=== PATIENT | male | born 1995 | race Caucasian/White ===

== ENCOUNTER 2021-02-17 12:51 | Emergency (ER) | payer OTHER, SELFPAY ==
[2021-02-17 13:01] VITALS: BP 115/67; PULSE 81; RESP 16; TEMP 36.6; O2SAT 98
[2021-02-17 13:04] VITALS: BP 125/68; PULSE 85; RESP 16; TEMP 36.6; O2SAT 100
--- NOTE | 2021-02-17 13:05 | ED.WOUNDLAC ---
HPI - Wound/Laceration General Chief Complaint: Wound/Laceration Stated Complaint: Finger Lac Time Seen by Provider: 02/17/21 13:05 Source: patient and RN notes reviewed History of Present Illness HPI narrative: Patient is a 25-year-old male who presents the urgent care with complaints of a puncture wound to the left middle finger. Patient states that he was using a knife and punctured to the finger. Patient has cleaned the wound and covered with a Band-Aid. States that he does not believe he is up-to-date on tetanus. No other acute complaints or injuries. No acute distress noted. Patient aware of plan of care. Some parts of this dictation were generated by voice recognition software and may contain typographical and/or grammatical inaccuracies. Related Data Allergies Allergy/AdvReac Type Severity Reaction Status Date / Time No Known Allergies Allergy Verified 02/17/21 13:45 Review of Systems Review of Systems: CONSTITUTIONAL: Denies fever, chills, or sweats. EYES: Denies visual changes, redness, or discharge. ENT: Denies rhinorrhea, congestion, sore throat, or otalgia. CARDIOVASCULAR: Denies chest pain, palpitations, or edema. RESPIRATORY: Denies cough or dyspnea. GASTROINTESTINAL: Denies abdominal pain, nausea, vomiting, or diarrhea. GENITOURINARY: Denies dysuria or hematuria. SKIN: Reports of a laceration/puncture wound to the left middle finger MUSCULOSKELETAL: Denies back pain, joint pain, or myalgia. NEUROLOGIC: Denies headache, numbness, or weakness. All other systems reviewed are negative, except as documented in HPI. PMFSH Comments At the time of my signature, I reviewed and agree with the nursing past medical, surgical, social, and family history. There is no relevant family history pertinent to the patient complaint. Exam Narrative: GENERAL: This is a well-nourished, well-developed patient, in no apparent distress. HEAD: normocephalic, atraumatic. EYES: PERRL. Sclera clear/white. Vision is grossly intact. EARS: External ears normal NOSE: External nose normal with no obvious nasal discharge, nares without redness, no rhinorrhea. THROAT: Mucous membranes moist NECK: Neck supple CARDIOVASCULAR: Regular rate and rhythm without murmurs, gallops, or rubs. RESPIRATORY: Clear to auscultation. Breath sounds equal bilaterally. No wheezes, rales, or rhonchi. SKIN: 0.5 cm flap/puncture wound to the dorsal PIP of the left middle finger. Warm, intact with no suspicious lesions or rash, good texture and turgor. NEURO: awake, alert, and oriented to person, place and time. There were no obvious focal neurologic abnormalities. EXTREMITIES: Range of motion to left upper extremity within normal limits with positive strong left radial pulse and capillary refill less than 2 seconds. Course Vital Signs Vital signs: Vital Signs Temperature 97.8 F 02/17/21 13:01 Pulse Rate 81 02/17/21 13:01 Respiratory Rate 16 02/17/21 13:01 Blood Pressure 115/67 02/17/21 13:01 Pulse Oximetry 98 02/17/21 13:01 Temperature 97.9 F 02/17/21 13:04 Pulse Rate 85 02/17/21 13:04 Respiratory Rate 16 02/17/21 13:04 Blood Pressure 125/68 02/17/21 13:04 Pulse Oximetry 100 02/17/21 13:04 Reviewed Procedures Laceration Laceration 1: Side (If applicable): left Size (cm): 0.5 Description: flap Depth: simple, single layer Pre-repair: irrigated extensively ====== Skin Level ====== Skin layer closed with: dermabond and steri strips ====== Subcutaneous Layer ====== ====== Muscle Layer ====== ====== Tendon Layer ====== Dressing: Wound approximated with Dermabond and Steri-Strips. Irrigated with Primaderm and normal saline. Patient tolerated well. Procedure successful. MDM - Wound/Laceration MDM Narrative Medical decision making narrative: Advised the patient not to scrub directly over the Dermabond. Allow it to fall off on its own. Wear the splint
[2021-02-17] MEDS: TETANUS/DIPHTHERIA TOXOIDS ADSORB 0.5 ML VIAL (*BKC) IM (13:44)
== END 2021-02-17 13:50 | disposition home or self-care (01) ==
PROVIDERS: Emergency Provider Nurse Practitioner Family
DX: S61.233A Puncture wound without foreign body of left middle finger without damage to nail, initial encounter (principal); Z23 Encounter for immunization; W26.0XXA Contact with knife, initial encounter
CPT/HCPCS: 12001; 90471; 90714; 99212; G0463